=== PATIENT | female | born 1945 | race Caucasian/White ===

== ENCOUNTER → 2023-11-15 09:32 | Outpatient (REF) | payer MEDICARE, OTHER, SELFPAY ==
[2023-11-15 11:23] LABS: Urine Albumin Trace (Neg - Trace); Urine Bilirubin Negative (Negative); Urine Character Very Cloudy (Clear); Urine Color Yellow; Urine Glucose Negative (Negative); Urine Ketone Negative (Negative); Urine Leukocyte 2+ (Negative); Urine Nitrite Negative (Negative); Urine Occult Blood 1+ (Negative); Urine Urobilinogen Negative (Neg - 1+)
[2023-11-15 12:03] LABS: Urine Mucus Moderate
[2023-11-15 12:05] LABS: Urine Bacteria Few (Negative); Urine Red Blood Cell 0-2 /HPF (0-2); Urine Squamous Cell 0-2 /LPF (Few); Urine White Cell 90-100 /HPF (0-5); Urine Yeast Many (Negative)
== END ==
LOC: OLABWHC 09:32
PROVIDERS: ATTENDING PHYSICIAN Nurse Practitioner Family
DX: N39.0 Urinary tract infection, site not specified (principal); Z87.440 Personal history of urinary (tract) infections; Z86.39 Personal history of other endocrine, nutritional and metabolic disease
CPT/HCPCS: 81003; 81015; 87077; 87086; 87147

== ENCOUNTER 2023-12-06 21:11 | Inpatient (IN) | payer MEDICARE, OTHER, SELFPAY ==
[2023-12-06] VITALS (7 sets, daily range): BP systolic 128–155; BP diastolic 72–92; PULSE 79–85; BMI 26.7; BMI 26.1
[2023-12-06 18:30] LABS: Glucose - Point of Care 167 mg/dl (70-99)
[2023-12-06 18:40] LABS: % Basophils 0.4 % (0-2); % Eosinophils 0.9 % (0-6); % Immature Granulocytes 0.3 % (0-0.5); % Lymphocytes 21.8 % (20.5-51.1); % Monocytes 10.9 % (1.7-9.3); % Neutrophils 65.7 % (42.2-75.2); Absolute Eosinophils 0.1 10^3/uL (0-0.7); Absolute Lymphocytes 1.5 10^3/uL (1.2-3.4); Absolute Monocytes 0.8 10^3/uL (0.1-0.6); Absolute Neutrophils 4.5 10^3/uL (1.4-6.5); Mean Corp Hgb Conc. 34.2 g/dL (33.0-37.0); Mean Corpuscular Hgb 28.8 pg (27.0-31.0); Mean Corpuscular Volume 84.1 fL (81.0-99.0); Mean Platelet Volume 9.5 fL (7.4-10.4); Nucleated Red Blood Cells % 0 %; Platelet Count 209 10^3/uL (130-400); Red Blood Cell Count 4.52 10^6/uL (4.20-5.40); White Blood Cell Count 6.9 10^3/uL (4.8-10.8)
[2023-12-06 19:03] LABS: ALT (SGPT) 20 U/L (0-35); AST (SGOT) 27 U/L (14-36); Albumin 4.5 g/dl (3.5-5.0); Alkaline Phosphatase 52 U/L (38-126); Blood Urea Nitrogen 11 mg/dl (7-17); Calcium 10.1 mg/dl (8.4-10.2); Carbon Dioxide 19 mmol/L (22-30); Chloride 103 mmol/L (98-107); Estimated Creatinine Clearance 60 ml/min; Glucose 177 mg/dl (70-99); Potassium 4.4 mmol/L (3.5-5.1); Sodium 135 mmol/L (135-145); Total Bilirubin 0.7 mg/dl (0.2-1.3); Total Protein 7.6 g/dl (6.3-8.2); eGFR > 60.00
--- NOTE | 2023-12-06 19:04 | ED.GENMED ---
History of Present Illness
General
Chief Complaint: Weakness
Source: patient
Exam Limitations: none
Time Seen by Provider: 12/06/23 18:25
Nursing documentation reviewed up to this point in time: agreed with
Travel History
Have you had any contact with someone who has COVID-19?: No
Do you have any symptoms of coronavirus? Fever > 100 degrees, chills, cough, shortness of breath, sore throat, loss of taste or smell, muscle aches, or headache?: No
History of Present Illness
History of Present Illness:
Patient is a 77-year-old female who presents by ambulance for generalized weakness and lightheadedness. Patient reports she generally gets around with a walker but is unable to get up due to generalized weakness. Paramedics reports she has
recently been started on antibiotics for urinary tract infection. Patient denies headache, vision changes, numbness, nausea, vomiting and diarrhea. She reports she has been eating well. Patient denies chest pain or shortness of breath
Past History
Past History
ED Past Medical History: HTN, NIDDM, Psychiatric (Anxiety, Depression) and Other (Dizzy, UTi, )
ED Past Surgical History: Cholecystectomy, (X 3), Orthopedic (Left knee surgery), Tonsilectomy and Other (Parathyroid)
Social History
Tobacco: Former smoker
Alcohol: None
Drug: None
Personal:
Living: correction
Employment: Other
Family History
Family History: Other
Review of Systems
Review of Systems
Allergies reviewed?: Yes
All Other Systems: ROS reviewed and negative except as documented in HPI and ROS
Constitutional: Reports fatigue
EENT: Reports no symptoms
Respiratory: Reports no symptoms
Cardiac: Reports other (Lightheadedness)
ABD/GI: Reports no symptoms
: Reports no symptoms
Musculoskeletal: Reports no symptoms
Skin: Reports no symptoms
Neurological: Reports no symptoms
Endocrine: Reports no symptoms
Hematologic/Lymphatic: Reports no symptoms
Psychiatric: Reports no symptoms
Phy Exam
Physical Exam
Physical Exam:
Physical Exam
General: no apparent distress, not acutely ill
Neck: supple. no meningeal signs. normal psoterior pharynx
Heart: s1/s2 regular rate and rhythm,
Lungs: no acute respiratory distress. clear bilaterally
Abdomen: normal bowel sounds. not tender. no CVAT
Neuro: alert and orientedx3. no focal neurological deficits, when I got patient up to walk, she had great difficulty standing up out of the bed needed 2 people to help her walk around to the bathroom.
Skin: no rash
Psychiatric: well kept. interactive and cooperative
Extremities: no edema. no calf tenderness. negative homans. good distal pulses
Course
Orders/Labs/Results
Orders:
Orders
12/06/23 18:33
Electrocardiogram (*1) Urgent
Reason for Study: Fatigue / Weakness
EKG- Treatment ONCE
12/06/23 18:35
Complete Blood Count/With Diff Urgent
Comprehensive Metabolic Panel Urgent
12/06/23 19:09
Orthostatic VS- Treatment ONCE
12/06/23 19:45
Urinalysis Reflex To Culture Urgent
Date Specimen was Collected: 12/06/23
Time Specimen was Collected: 18:33
Urine Microscopic Reflex Cult Urgent
Urine Culture Urgent
NGUYEN Source: U
Specimen Description:
Date Specimen was Collected: 12/06/23
Time Specimen was Collected: 18:33
12/06/23 19:46
Troponin I Urgent
12/06/23 20:07
0.9% Sodium Chloride 500 ml [Nss] 500 ml IV BOLUS
12/06/23 20:12
CefTRIAXone [Rocephin] 1,000 mg IV NOW STA
12/06/23 20:46
Admit/Transfer Patient As Directed
Co-Sign Provider:
Level of Care: Inpatient admission
Assign to:: Medical/Surgical
Physician / Group: Hospitalist
Diagnosis: Urinry infection
Reason for Hospitalization: Urinary infection
Expected length of stay greater than two midnights?: Yes
ELOS- Estimated Length of Stay in days: 3
I certify the patient meets the requirements for IP care: Yes
12/06/23 20:48
Code Status As Directed
Resuscitation Status: Full Code
12/06/23 22:22
Acetaminophen [Tylenol] 650 mg PO Q4HPRN PRN
Atorvastatin [Lipitor] 80 mg PO HS
Bisacodyl [Dulcolax] 10 mg RECTAL [id number] PRN
Docusate W/Senna [Senokot-S] 1 tablet PO BIDPRN PRN
Fluoxetine HCl [Prozac] 10 mg PO HS
Losartan [Cozaar] 50 mg PO HS
Ondansetron Injectable [Zofran] 4 mg IV Q6HPRN PRN
Pantoprazole [Protonix] 40 mg PO HS
Polyethylene Glycol Powder [Miralax] 17 grams PO DAILYPRN PRN
Risperidone [Risperdal] 1 mg PO HS
Sennosides [Senokot] 17.2 mg PO HS
12/06/23 22:22
Activity As Directed
Activity Level: With Assistance
Pneumatic Compression Sleeves As Directed
Type: Knee high
Vital Signs As Directed
Frequency: Per unit guidelines
DX Deep Vein Thrombosis Video Routine
12/07/23 Breakfast
Regular
Basic Metabolic Panel IN AM
Complete Blood Count/No Diff IN AM
12/07/23 08:00
Docusate Sodium [Colace] 100 mg PO BID
Empagliflozin [Jardiance] 10 mg PO DAILY
METFORMIN HCl [Glucophage] 1,000 mg PO BID@0800,1700
12/07/23 20:00
CefTRIAXone [Rocephin] 1,000 mg IV Q24H
Abnormal Lab Results
12/06/23 12/06/23 12/06/23
18:28 18:35 19:45
RDW 15.0 H %
(11.5-14.5)
Absolute Monos (auto) 0.8 H 10^3/uL
(0.1-0.6)
Monocytes % 10.9 H %
(1.7-9.3)
Carbon Dioxide 19 L mmol/L
(22-30)
Creatinine 0.5 L mg/dL
(0.6-1.0)
Glucose 177 H mg/dl
(70-99)
Ur Occult Blood Reflex 1+ A
(Negative)
Leukocyte Esterase Rfl 2+ A
(Negative)
Urine RBC 7-10 A /HPF
(0-2)
Urine WBC (Reflex) >100 A /HPF
(0-5)
Urine Bacteria (Reflex) Many A
(Negative)
POC Glucose 167 H mg/dl
(70-99)
12/06/23 18:35
12/06/23 18:35
Vital Signs
Initial and Last Documented VS:
Initial Vital Signs
Temp Pulse Resp Pulse Ox
98.6 F 90 16 95
12/06/23 18:26 12/06/23 18:26 12/06/23 18:26 12/06/23 18:26
Last Documented Vital Signs
Temp Pulse Resp BP Pulse Ox
98.0 F 77 20 155/80 96
12/06/23 23:07 12/06/23 23:07 12/06/23 23:07 12/06/23 23:07 12/06/23 23:07
MDM/Problems Addressed
Differential Diagnosis Includes:
Acute dehydration, UTI, pneumonia, hyponatremia
MDM/Problems Addressed:
Patient presents with acute generalized weakness and lightheadedness
Acute Exacerbation and/or Progression of Chronic Illness:
Patient is acutely hypertensive but there is no sign of heart failure or neurological deficit
*EKG
Interpreted by ED Provider?: Yes
Interpretation: abnormal
Comparison EKG: no changes
Rate: normal
Rhythm: sinus
[place]: left axis deviation
Interval: normal interval
QRS Pattern: left vent hypertrophy
Ischemia: no ischemia
*Trading Assistant Interpretation
Rate: normal
Interpretation: normal
*Critical Care Note
Total Time (30-74mins, 75-104mins- exclusive of procedures): Not Applicable
Patient Management
Social determinants of health affecting care: Living situation
Discussion with other providers: Hospitalist
ED Attending Note
-
Portions of this chart may have been created with voice recognition software.� Occasional wrong word or��sound alike� substitutions may have occurred due to the inherent limitations of voice recognition software.
Discharge Plan
Departure
Patient Disposition: Admit
Date of Disposition: 12/06/23
Time of Disposition: 20:12
Admit to: Med/Surg
Presentation/result/management discussed w/ accepting MD/DO: Hospitalist
Patient with high blood pressure during this ER visit?: Yes
Condition: Good
Covid-19: Not Applicable
Discharge Problem:
UTI (urinary tract infection), Ambulatory dysfunction, Generalized weakness
Interventions
Interventions:
*Risk Screen - Suicide Last Done: 12/06/23 18:26
*General Assessment Last Done: 12/06/23 18:26
*Neglect/Abuse Screening Last Done: 12/06/23 18:26
ED- Fall Risk Assessment Last Done: 12/06/23 18:30
*ED COVID-19 Vaccine History Last Done: 12/06/23 18:26
*Nursing Disposition Last Done: 12/06/23 22:15
ED- Cardiac Assessment Last Done: 12/06/23 18:30
ED- Neurological Assessment Last Done: 12/06/23 18:30
ED- Pulmonary Assessment Last Done: 12/06/23 18:30
Discharge Date and Time
Discharge Date/Time: 12/06/23 22:15
[2023-12-06 19:55] LABS: Urine Albumin Trace (Neg - Trace); Urine Bilirubin Negative (Negative); Urine Character Clear (Clear); Urine Color Yellow; Urine Glucose Negative (Negative); Urine Ketone Negative (Negative); Urine Leukocyte 2+ (Negative); Urine Nitrite Negative (Negative); Urine Occult Blood 1+ (Negative); Urine Urobilinogen Negative (Neg - 1+)
[2023-12-06 20:02] LABS: Urine Bacteria Many (Negative); Urine Squamous Cell 0-2 /LPF (Few); Urine White Cell >100 /HPF (0-5)
[2023-12-06 20:16] LABS: Troponin I < 0.012 ng/ml
--- NOTE | 2023-12-06 20:18 | PHANOTE ---
Med Rec Note:
Tried to interview pt about medications, pt didn't know her medications, states 'they take care of them for her'. No paperwork found for pt. Tried to call [facility] twice at [phone], no answer, calls went to voicemail.
Home med list compiled from dr mena and left unconfirmed due to only one source.
--- NOTE | 2023-12-06 20:39 | HPS.HSE ---
Family Physician
-
Family Physician: Hui Torres
Chief Complaint
-
Dizziness
History of Present Illness
77-year-old woman with generalized weakness and lightheadedness. She states that she usually gets around with a walker but is now unable to get up due to generalized weakness. Paramedics who brought her in reports she has recently been started on
antibiotics for urinary tract infection. Patient denies headache, vision changes, numbness, nausea, vomiting and diarrhea and reports she has been eating well. She denies chest pain or shortness of breath. At the time of my interview, lying in
bed, she said she felt well.
Medical History
Past Medical History
Past Medical History: Reports Other
Additional Past Medical History:
essential HTN,
NIDDM,
Anxiety,
Depression
past UTis
s/p Cholecystectomy,
(X 3),
Left knee surgery
Tonsilectomy
Parathyroid surgery
Past Surgical History: Reports Other
Additional Past Surgical History:
See above
Social History
Tobacco: Non-smoker
Alcohol: None
Drug: None
Living: Assisted Living
Family History
Family History: Not pertinent
Allergies / Home Medications
Allergies reflects when Allergies were last updated in [facility].
Home Medications with original date entered in [facility]
Allergy/Medication List:
Allergies
Allergy/AdvReac Type Severity Reaction Status Date / Time
latex Allergy Unknown Verified 12/06/23 18:29
levofloxacin [From Levaquin] Allergy Unknown Verified 12/06/23 18:29
Penicillins Allergy Unknown Verified 12/06/23 18:29
salmon oil Allergy Unknown Verified 12/06/23 18:29
shrimp Allergy Unknown Verified 12/06/23 18:29
sulfamethoxazole Allergy Unknown Verified 12/06/23 18:29
[From Bactrim]
ticlopidine [From Ticlid] Allergy Unknown Verified 12/06/23 18:29
trimethoprim [From Bactrim] Allergy Unknown Verified 12/06/23 18:29
all antibiotics Allergy Unknown Uncoded 12/06/23 18:29
Home Medications
risperidone 1 mg tablet 1 mg PO HS Mental Health/Anxiety 08/08/20
empagliflozin 10 mg tablet (Jardiance) 10 mg PO DAILY #30 tabs 09/21/22
metformin 1,000 mg tablet 1,000 mg PO BID@0800,1700 #60 tabs 09/21/22
atorvastatin 80 mg tablet 80 mg PO HS High Cholesterol 08/09/23
fluoxetine 10 mg tablet 10 mg PO HS mental health 08/09/23
pantoprazole 40 mg tablet,delayed release 40 mg PO HS Gastrointestinal Issue 08/09/23
docusate sodium 100 mg capsule 100 mg PO BID #60 caps 08/15/23
losartan 50 mg tablet 50 mg PO HS #30 tabs 08/15/23
sennosides 8.6 mg tablet (Senna Lax) 17.2 mg (2 x 8.6 mg) PO HS #60 tabs 08/15/23
Review of Systems
-
History Source: Patient
A 12 point ROS was completed and negative except as noted: Yes
Physical Exam
Vital Signs
Vital Signs
Temp Pulse Resp BP Pulse Ox
98.6 F 79 14 129/72 93
12/06/23 18:26 12/06/23 20:00 12/06/23 20:00 12/06/23 20:00 12/06/23 20:00
Physical Exam
General: Well Developed, Well Nourished, No Apparent Distress and Comfortable
HEENT: NormoCephalic, No Ptosis, Nose Appears Normal and Ears Appear Normal
Respiratory: Clear
Cardiac: S1/S2 and Regular Rhythm
GI: Soft and Non Tender
Musculoskeletal: No Clubbing, No Cyanosis and No Edema
Skin: Warm and Dry; No Rash or Jaundice
Neuro: Awake and Alert
Psych: Calm
Laboratory Results
-
12/06/23 18:35
12/06/23 18:35
Laboratory Results
Total Bilirubin 0.7 mg/dl (0.2-1.3) 12/06/23 18:35
AST 27 U/L (14-36) 12/06/23 18:35
ALT 20 U/L (0-35) 12/06/23 18:35
Alkaline Phosphatase 52 U/L (38-126) 12/06/23 18:35
Troponin I < 0.012 ng/ml 12/06/23 19:46
Data Reviewed
-
Lab Data: Labs Reviewed by me
Impression/Plan
-
IMPRESSION:
77 woman with UTI (r/o pyelo). Vitals stable
PLAN:
1. Infection, urinary source, with systemic symptoms.
IV rocephin
await UC results
2. Otherwise continue current meds
Full code
VCD for DVTp
[2023-12-06] MEDS: ROCEPHIN 1000 MG IV (20:50)
[2023-12-06] MEDS: NSS 500 IV (20:51)
[2023-12-06 23:09] LABS: Glucose - Point of Care 126 mg/dl (70-99)
[2023-12-06] MEDS: COZAAR 50 MG PO (23:15)
[2023-12-06] MEDS: TYLENOL 650 MG PO (23:16)
[2023-12-06] MEDS: SENOKOT 17.1999999999999993 MG PO (23:17)
[2023-12-06] MEDS: RISPERDAL 1 MG PO (23:19)
[2023-12-06] MEDS: PROTONIX 40 MG PO (23:19)
[2023-12-06] MEDS: PROZAC 10 MG PO (23:19)
[2023-12-06] MEDS: LIPITOR 80 MG PO (23:19)
--- NOTE | 2023-12-07 05:29 | PTCARENOTE ---
Pt admitted to unit from ED. Pt ambulated to bed with nursing staff and rolling walker. AAXO3. Pt reported headache. Medication administered. Pt forgetful at times. Bed alarm in place. Pt reports 'a little burning when I pee.' Pt reports 'a little
lightheaded and dizzy' when ambulating. Bedside commode in place. Pt oriented to room with call dickerson in reach. Plan of care ongoing.
[2023-12-07 07:11] LABS: Hematocrit 35.6 % (37.0-47.0); Mean Corp Hgb Conc. 33.7 g/dL (33.0-37.0); Mean Corpuscular Hgb 28.4 pg (27.0-31.0); Mean Corpuscular Volume 84.4 fL (81.0-99.0); Mean Platelet Volume 9.9 fL (7.4-10.4); Platelet Count 193 10^3/uL (130-400); Red Blood Cell Count 4.22 10^6/uL (4.20-5.40); Red Cell Dist. Width 15.1 % (11.5-14.5); White Blood Cell Count 5.6 10^3/uL (4.8-10.8)
[2023-12-07 07:30] VITALS: BP 123/75
[2023-12-07 07:40] LABS: Blood Urea Nitrogen 12 mg/dl (7-17); Calcium 9.3 mg/dl (8.4-10.2); Carbon Dioxide 28 mmol/L (22-30); Chloride 104 mmol/L (98-107); Estimated Creatinine Clearance 59 ml/min; Glucose 129 mg/dl (70-99); Potassium 3.5 mmol/L (3.5-5.1); Sodium 137 mmol/L (135-145); eGFR > 60.00
[2023-12-07 08:19] LABS: Glucose - Point of Care 121 mg/dl (70-99)
[2023-12-07] MEDS: JARDIANCE 10 MG PO (08:21)
[2023-12-07] MEDS: COLACE 100 MG PO ×2 (08:21→21:23)
[2023-12-07] MEDS: GLUCOPHAGE 1000 MG PO ×2 (08:21→17:30)
[2023-12-07 12:02] LABS: Glucose - Point of Care 144 mg/dl (70-99)
--- NOTE | 2023-12-07 13:07 | W.PN.HOSP.TC ---
Today's Communication/Plan
-
Patient needs to straight cath
Bladder scan to see if patient has PVR
Await urine culture
Need to get medicines list verified
PT OT
Assessment / Plan
Assessment / Plan
77-year-old female with generalized weakness and lightheadedness. Patient has been recently started on antibiotics for UTI. She did not fall on examination awake and alert. she was on intermittent catheterization with a Dr. Alejandro in [place], and he
was following her for urinary retention of unknown etiology, but she got tired of doing intermittent catheterization and stopped it completely. She has had several urinary tract infections ever since.
Asking to go home
Cardiovascular system S1-S2 appreciated
Chest clear to auscultation
Abdomen soft and nontender
No pedal edema
# Generalized weakness and dizziness
Check orthostatic vital signs
Patient does have a history of benign positional vertigo
PT OT
Treat UTI
# UTI
Due to noncompliance with straight cath at home
History of recurrent UTI
Await cultures
Bladder scan and straight cath
# Diabetes-need to get medications list
Patient was on Jardiance and metformin
With recurrent UTI will stop Jardiance
# Hypertension-losartan, amlodipine
# History of asthma-Stable
# History of CVA-Add ASA to statin
# Cognitive dysfunction
# Hyperlipidemia-STatin
# Anxiety and depression-last medications list had fluoxetine and risperidone- verification
# Ambulatory dysfunction-PT OT
# GERD-PPI
#DVT Prophylaxis-Lovenox
#Full CODE
Called daughter went to message
Anticipated Discharge: 24 - 48 hours
Subjective/Interval History
-
Date of Service: December 07, 2023
Objective Data
-
Labs:
Laboratory Results
12/07/23
06:37
WBC 5.6
Hgb 12.0
Hct 35.6 L
Plt Count 193
Sodium 137
Potassium 3.5
Chloride 104
Carbon Dioxide 28
BUN 12
Creatinine 0.6
Glucose 129 H
Calcium 9.3
Vital Signs:
Vital Signs
Temp Pulse Resp BP Pulse Ox
98.4 F 97 16 123/75 97
12/07/23 07:30 12/07/23 07:30 12/07/23 07:30 12/07/23 07:30 12/07/23 07:30
I&O
12/06/23 12/07/23 12/08/23
06:59 06:59 06:59
Intake Total 960 / 960
Balance 960 / 960
[2023-12-07 14:55] VITALS: BP 120/70; PULSE 97; O2SAT 95
--- NOTE | 2023-12-07 15:29 | CM ---
Patient seen bedside.
IA completed.
PAtient lives alone in an apartment at [facility], independent living.
Patient ambulates with at .
Patient stated she had VN in the past but not sure with who.
No skilled rehab.
PCP: Dr Torres
Pharmacy: [facility]
PT/OT recommending skilled rehab.
Referral to [facility] via [facility].
Patient not sure if she has a ride home when ready for d/c.
[2023-12-07 16:00] VITALS: BP 126/73
[2023-12-07] MEDS: LOVENOX 40 MG SC (17:30)
--- NOTE | 2023-12-07 17:36 | PTCARENOTE ---
unable to teach the patient to perform self catheterization. patient is confused
[2023-12-07 17:38] LABS: Glucose - Point of Care 120 mg/dl (70-99)
[2023-12-07] MEDS: ROCEPHIN 1000 MG IV (21:23)
[2023-12-07] MEDS: RISPERDAL 1 MG PO (21:23)
[2023-12-07] MEDS: LIPITOR 80 MG PO (21:23)
[2023-12-07] MEDS: COZAAR 50 MG PO (21:23)
[2023-12-07] MEDS: STERILE WATER FOR INJECTION 10 ML IV (21:23)
[2023-12-07] MEDS: PROTONIX 40 MG PO (21:23)
[2023-12-07] MEDS: SENOKOT 17.1999999999999993 MG PO (21:23)
[2023-12-07] MEDS: PROZAC 10 MG PO (21:23)
[2023-12-07 22:16] LABS: Glucose - Point of Care 340 mg/dl (70-99)
[2023-12-07 23:46] VITALS: BP 174/94
[2023-12-08 06:44] LABS: COVID-19 Antigen Negative (Negative)
[2023-12-08 07:00] VITALS: BP 128/73
[2023-12-08] MEDS: COLACE 100 MG PO ×2 (07:35→20:16)
[2023-12-08] MEDS: LOW STRENGTH ASPIRIN 81 MG PO (07:35)
[2023-12-08] MEDS: GLUCOPHAGE 1000 MG PO ×2 (07:35→16:51)
[2023-12-08 09:07] VITALS: BP 114/58; BP 128/73; PULSE 78; PULSE 85
[2023-12-08 09:57] LABS: Glucose - Point of Care 186 mg/dl (70-99)
--- NOTE | 2023-12-08 10:10 | PTCARENOTE ---
This nurse received pt. from [id number] d/t pt. positive for MRSA in the nares, needing private room. No change from previous assessment consultant. Pt. VSS, no c/o pain, resting comfortably in bed, call dickerson within reach.
[2023-12-08 11:47] LABS: Glucose - Point of Care 130 mg/dl (70-99)
--- NOTE | 2023-12-08 14:07 | W.PN.HOSP.TC ---
Today's Communication/Plan
-
Await final CX to stop AB
Add Diflucan
Need to get accurate med list
Pt to straight cath
Assessment / Plan
Assessment / Plan
77-year-old female with generalized weakness and lightheadedness. Patient has been recently started on antibiotics for UTI. She did not fall on examination awake and alert. she was on intermittent catheterization with a Dr. Alejandro in [place], and he
was following her for urinary retention of unknown etiology, but she got tired of doing intermittent catheterization and stopped it completely. She has had several urinary tract infections ever since.
Cardiovascular system S1-S2 appreciated
Chest clear to auscultation
Abdomen soft and nontender
No pedal edema
# Generalized weakness and dizziness
Check orthostatic vital signs
Patient does have a history of benign positional vertigo
PT OT
Treat UTI
# UTI
Due to noncompliance with straight cath at home
History of recurrent UTI
Patient needs to be educated how to straight cath
Angle in the urine-start Diflucan
# Diabetes-need to get medications list
Patient was on Jardiance and metformin
With recurrent UTI will stop Jardiance
#MRSA Screen positive
# Hypertension-losartan, amlodipine
# History of asthma-Stable
# History of CVA- ASA and statin
# Cognitive dysfunction
# Hyperlipidemia-Statin
# Anxiety and depression-last medications list had fluoxetine and risperidone- verification
# Ambulatory dysfunction-PT OT
# GERD-PPI
#DVT Prophylaxis-Lovenox
#Full CODE
Called daughter went to message again today- Left message
D/W RN
Anticipated Discharge: 24 - 48 hours
Subjective/Interval History
-
Date of Service: December 08, 2023
Objective Data
-
Vital Signs:
Vital Signs
Temp Pulse Resp BP Pulse Ox
97.7 F 78 16 128/73 93
12/08/23 07:00 12/08/23 07:00 12/08/23 07:00 12/08/23 07:00 12/08/23 07:00
I&O
12/07/23 12/08/23 12/09/23
06:59 06:59 06:59
Intake Total 960 / 960 840 / 840
Output Total 1600 / 1600
Balance 960 / 960 -760 / -760
--- NOTE | 2023-12-08 14:45 | PTCARENOTE ---
Dr. Woods made aware this nurse unable to teach pt. to straight cath herself as pt. is unable to preform task.
[2023-12-08 15:32] VITALS: BP 118/72
[2023-12-08] MEDS: DIFLUCAN 200 MG PO (16:47)
[2023-12-08] MEDS: LOVENOX 40 MG SC (16:51)
[2023-12-08] MEDS: ROCEPHIN 1000 MG IV (20:17)
[2023-12-08] MEDS: FLUSH (NSS) 2 FLUSH IV (20:17)
[2023-12-08] MEDS: STERILE WATER FOR INJECTION 10 ML IV (20:17)
[2023-12-08] MEDS: SENOKOT 17.1999999999999993 MG PO (21:52)
[2023-12-08] MEDS: PROTONIX 40 MG PO (21:53)
[2023-12-08] MEDS: LIPITOR 80 MG PO (21:53)
[2023-12-08] MEDS: RISPERDAL 1 MG PO (21:53)
[2023-12-08] MEDS: PROZAC 10 MG PO (21:53)
[2023-12-08] MEDS: COZAAR 50 MG PO (21:53)
[2023-12-08 23:05] VITALS: BP 143/77
[2023-12-08 23:20] LABS: Glucose - Point of Care 110 mg/dl (70-99)
[2023-12-09 07:21] LABS: Hematocrit 38.6 % (37.0-47.0); Hemoglobin 12.7 g/dL (12.0-16.0); Mean Corp Hgb Conc. 32.9 g/dL (33.0-37.0); Mean Corpuscular Hgb 28.7 pg (27.0-31.0); Mean Corpuscular Volume 87.1 fL (81.0-99.0); Mean Platelet Volume 9.6 fL (7.4-10.4); Platelet Count 189 10^3/uL (130-400); Red Blood Cell Count 4.43 10^6/uL (4.20-5.40); Red Cell Dist. Width 15.3 % (11.5-14.5); White Blood Cell Count 5.7 10^3/uL (4.8-10.8)
[2023-12-09] MEDS: DIFLUCAN 200 MG PO (08:01)
[2023-12-09] MEDS: LOW STRENGTH ASPIRIN 81 MG PO (08:01)
[2023-12-09] MEDS: GLUCOPHAGE 1000 MG PO ×2 (08:01→16:32)
[2023-12-09] MEDS: COLACE 100 MG PO (08:02)
[2023-12-09 08:14] LABS: Glucose - Point of Care 153 mg/dl (70-99)
[2023-12-09 09:00] VITALS: BP 146/76
[2023-12-09 09:04] LABS: Blood Urea Nitrogen 15 mg/dl (7-17); Carbon Dioxide 27 mmol/L (22-30); Chloride 105 mmol/L (98-107); Estimated Creatinine Clearance 59 ml/min; Glucose 111 mg/dl (70-99); Potassium 3.4 mmol/L (3.5-5.1); Sodium 137 mmol/L (135-145); eGFR > 60.00
[2023-12-09] MEDS: KCL 40 MEQ PO (11:42)
--- NOTE | 2023-12-09 14:02 | W.PN.HOSP.TC ---
Today's Communication/Plan
-
Diflucan
Discharge planning
May need Jonas placed prior to discharge if [facility] cannot help with straight cath
Patient cannot do straight cath herself
Assessment / Plan
Assessment / Plan
77-year-old female with generalized weakness and lightheadedness. Patient has been recently started on antibiotics for UTI. She did not fall on examination awake and alert. she was on intermittent catheterization with a Dr. Alejandro in [place], and he
was following her for urinary retention of unknown etiology, but she got tired of doing intermittent catheterization and stopped it completely. She has had several urinary tract infections ever since.
Cardiovascular system S1-S2 appreciated
Chest clear to auscultation
Abdomen soft and nontender
No pedal edema
# Generalized weakness and dizziness
Check orthostatic vital signs - No standing one recorded.
Patient does have a history of benign positional vertigo
PT OT
Treat UTI
# UTI
Due to noncompliance with straight cath at home
History of recurrent UTI
Patient needs to be educated how to straight cath
Angle in the urine-start Diflucan
# Diabetes-need to get medications list
Patient was on Jardiance and metformin
With recurrent UTI will stop Jardiance, do not resume
# MRSA Screen positive- daughter aware
# Hypokalemia- Replace
# Hypertension-Losartan, Amlodipine
# History of asthma-Stable
# History of CVA - ASA and Statin
# Cognitive dysfunction
# Hyperlipidemia-Statin
# Anxiety and depression-last medications list had fluoxetine and Risperidone- verification
# Ambulatory dysfunction-PT OT
# GERD-PPI
# DVT Prophylaxis-Lovenox
# CODE STATUS addressed with the daughter today. Patient remains a full code now. Discussed about considering DNR. Daughter will talk to patient about it.
D/W RN
Spoke to daughter . Pt lives in independent living at [facility]. Daughter thinks she needs to go to assisted living.
Daughter stated that Jardiance was stopped. We had also not given it to her here. Discussed with daughter to bring an accurate medications list but she will.
She is aware about MRSA
Discussed with daughter regarding patient not straight cathing and that is why she is getting recurrent UTIs. Daughter will find out from [facility] if they can assist her with straight caths. She is also trying to move her to an assisted living from
the independent.
If this is not feasible we may need to place a Jonas catheter prior to discharge.
time spent 52 min
Anticipated Discharge: Within 24 hours
Subjective/Interval History
-
Date of Service: December 09, 2023
Objective Data
-
Labs:
Laboratory Results
12/09/23
06:57
WBC 5.7
Hgb 12.7
Hct 38.6
Plt Count 189
Sodium 137
Potassium 3.4 L
Chloride 105
Carbon Dioxide 27
BUN 15
Creatinine 0.6
Glucose 111 H
Calcium 9.0
Vital Signs:
Vital Signs
Temp Pulse Resp BP Pulse Ox
98.2 F 91 18 146/76 93
12/09/23 09:00 12/09/23 09:00 12/09/23 09:00 12/09/23 09:00 12/09/23 09:00
I&O
12/08/23 12/09/23 12/10/23
06:59 06:59 06:59
Intake Total 840 / 840 480 / 480
Output Total 1600 / 1600 350 / 350
Balance -760 / -760 130 / 130
[2023-12-09 15:30] VITALS: BP 100/58; BP 116/64; BP 123/61; BP 124/54; PULSE 82; PULSE 91
[2023-12-09 16:28] LABS: Glucose - Point of Care 112 mg/dl (70-99)
[2023-12-09] MEDS: LOVENOX 40 MG SC (16:55)
[2023-12-09] MEDS: BACTROBAN 2% OINTMENT 1 APPLIC NASAL (20:05)
[2023-12-09] MEDS: STERILE WATER FOR INJECTION 10 ML IV (20:05)
[2023-12-09] MEDS: ROCEPHIN 1000 MG IV (20:05)
[2023-12-09] MEDS: COLACE PO (20:10)
[2023-12-09] MEDS: SENOKOT 17.1999999999999993 MG PO (22:44)
[2023-12-09] MEDS: LIPITOR 80 MG PO (22:44)
[2023-12-09] MEDS: PROZAC 10 MG PO (22:44)
[2023-12-09] MEDS: RISPERDAL 1 MG PO (22:44)
[2023-12-09] MEDS: PROTONIX 40 MG PO (22:44)
[2023-12-09] MEDS: COZAAR 50 MG PO (22:45)
[2023-12-09 23:05] VITALS: BP 121/73
[2023-12-10] MEDS: COLACE 100 MG PO (07:55)
[2023-12-10] MEDS: BACTROBAN 2% OINTMENT 1 APPLIC NASAL ×2 (07:55→20:55)
[2023-12-10] MEDS: DIFLUCAN 200 MG PO (07:56)
[2023-12-10] MEDS: LOW STRENGTH ASPIRIN 81 MG PO (07:56)
[2023-12-10] MEDS: GLUCOPHAGE 1000 MG PO ×2 (07:56→17:21)
[2023-12-10 09:07] LABS: Glucose - Point of Care 93 mg/dl (70-99)
[2023-12-10 10:15] VITALS: BP 121/72; BP 124/67; BP 132/71; PULSE 69; PULSE 78; PULSE 89
--- NOTE | 2023-12-10 11:51 | W.PN.HOSP.TC ---
Today's Communication/Plan
-
see bold
Assessment / Plan
Assessment / Plan
Gen: NAD, Awake and alert
Eyes: EOMI, PERRLA, no scleral icterus.
Neck: supple.
CV: RRR, +S1/S2, no m/r/g.
Resp: CTAB, no rales, wheezes, or rhonchi.
Abd: +BS, soft, NT, ND
Skin: No rashes.
Neuro: CN 2-12 intact, non-focal.
Psych: calm flat affect.
Generalized weakness and dizziness:
-h/o BPPV and chronic ambulatory dysfunction
-PT/OT
Chronic UTI:
-h/o recurrent UTIs
-likely due to noncompliance with straight cath, place muñiz
-was on abx PI/SENIOR RESEARCH ASSOCIATE
-currently on Diflucan for UCx with seth
-c/s ID
Other problems:
DM2: no further Jardiance with recurrent UTIs
Hypokalemia: recheck K today
Essential Hypertension: cont Losartan/Amlodipine
Asthma
h/o CVA: cont ASA/statin
Cognitive dysfunction, chronic
Hyperlipidemia: cont statin
Anxiety
Depression
GERD: cont PPI
FULL/Lovenox
Anticipated Discharge: Within 24 hours
Subjective/Interval History
-
Date of Service: December 10, 2023
Denies CP/SOB.
Objective Data
-
Vital Signs:
Vital Signs
Temp Pulse Resp BP Pulse Ox
98.0 F 69 16 121/73 96
12/10/23 10:15 12/10/23 10:15 12/10/23 10:15 12/09/23 23:05 12/10/23 10:15
I&O
12/09/23 12/10/23 12/11/23
06:59 06:59 06:59
Intake Total 480 / 480 600 / 600 480 / 480
Output Total 350 / 350
Balance 130 / 130 600 / 600 480 / 480
[2023-12-10 13:47] LABS: Potassium 4.1 mmol/L (3.5-5.1)
[2023-12-10 14:18] VITALS: BP 121/70; PULSE 64; O2SAT 97
--- NOTE | 2023-12-10 15:15 | CON.ID ---
Chief Complaint / Past History
History of Present Illness
Laine Scherer is a 77-year-old female being evaluated at the request of Dr. Cedeno in regards to complicated urinary tract infection. History is obtained from chart review, along with patient interview.
The patient has a significant past medical history of HTN and diabetes mellitus and was brought to the emergency room on 12/05 secondary to generalized weakness and feeling lightheaded. According to reviewed history she recently started on
antibiotics in the treatment of a urinary tract infection.
Further history indicates the patient had previously was followed by a physician in [place], [place] and had been advised to perform intermittent straight cathing. Since moving to the area to be closer to her daughter approximately 2 years ago this
has not been performing as much. Review of records indicate that she was admitted to [facility] in late July 2023, and at that time had been evaluated by Urology noted that she had an atonic neurogenic bladder (possibly secondary to
medication) and advised the patient be given supplies for intermittent cathing at the time of discharge.
The patient notes at present that she has slight dysuria, but has not had any hematuria.
Past History
Additional Past Medical History:
HTN
DM
Anxiety/depression
Additional Past Surgical History:
Cholecystectomy
x 3
Left knee surgery
Tonsillectomy
Parathyroid surgery
Allergy History:
latex Allergy (Verified 12/06/23 18:29)
Unknown
levofloxacin [From Levaquin] Allergy (Verified 12/06/23 18:29)
Unknown
Penicillins Allergy (Verified 12/06/23 18:29)
Unknown
salmon oil Allergy (Verified 12/06/23 18:29)
Unknown
shrimp Allergy (Verified 12/06/23 18:29)
Unknown
sulfamethoxazole [From Bactrim] Allergy (Verified 12/06/23 18:29)
Unknown
ticlopidine [From Ticlid] Allergy (Verified 12/06/23 18:29)
Unknown
Medications Reviewed: Yes
Current Antibiotics:
Diflucan 200 mg p.o. every 24 hours
Social History
Tobacco: Former Smoker
Alcohol: None
Drug: None
Personal:
Living: Assisted
Employment: Retired
Family History
Family History: Not Pertinent
Review of Systems
Vital Signs
Temp Pulse Resp BP Pulse Ox
98.0 F 69 16 121/73 96
12/10/23 10:15 12/10/23 10:15 12/10/23 10:15 12/09/23 23:05 12/10/23 10:15
Physical Exam
Physical Exam
Constitutional: No Acute Distress, Comfortable, Chronically Ill and Non-toxic
Eyes: No Conjunctival Hemorrhage and Sclera Anicteric
Oral: No Thrush and No Ulcers
Cardiovascular: Regular Rate and S1/S2; Negative S3/S4
Pulmonary: Clear; Negative Wheezes, Rales or Rhonchi
Gastrointestinal: Soft, Non Tender, Non Distended and Normal Bowel Sounds
Extremities: Negative Edema, Cyanosis or Erythema
Skin: Warm and Dry; Negative Rash or Jaundice
Neurological: Awake and Alert
Psychological: Calm
Lab / Diagnostic Study Results
12/09/23 06:57
12/10/23 13:19
Abs Immat Gran (auto) 0.0 10^3/uL (0-0.05) 12/06/23 18:35
Absolute Neuts (auto) 4.5 10^3/uL (1.4-6.5) 12/06/23 18:35
Absolute Lymphs (auto) 1.5 10^3/uL (1.2-3.4) 12/06/23 18:35
Absolute Monos (auto) 0.8 10^3/uL (0.1-0.6) H 12/06/23 18:35
Absolute Basos (auto) 0.0 10^3/uL (0-0.2) 12/06/23 18:35
Immature Gran % 0.3 % (0-0.5) 12/06/23 18:35
Neutrophils % 65.7 % (42.2-75.2) 12/06/23 18:35
Lymphocytes % 21.8 % (20.5-51.1) 12/06/23 18:35
Monocytes % 10.9 % (1.7-9.3) H 12/06/23 18:35
Eosinophils % 0.9 % (0-6) 12/06/23 18:35
Basophils % 0.4 % (0-2) 12/06/23 18:35
Ur Squamous Epith Cells 0-2 /LPF (Few) 12/06/23 19:45
Microbiology Results
Micro:
12/06/23 19:45 Urine Culture - Final
Urine Yeast
12/06/23 23:50 MRSA Screen - Final
Nose Staph aureus MRSA
Imaging:
08/11/2023 Renal ultrasound: No hydronephrosis. Kidneys are normal in size, contour and echogenicity. No renal calculi noted. Simple bilateral renal cysts seen. See full dictation for additional detail.
Assessment / Plan
Complicated urinary tract infection
Neurogenic bladder
Recurrent urinary tract infections
HTN
DM
Anxiety/depression
Recommendations:
Agree with initiation of Diflucan. Would treat for 7 days total.
Would maintain good fluid intake and attempt frequent urination.
Will need outpatient follow-up with Urology (appears to be scheduled in December in [facility]).
May need further urodynamic studies, or counseling regarding chronic Jonas catheter versus more frequent self-catheterization.
Care Review
Plan reviewed with: Physician (Hospitalist)
[2023-12-10 15:37] VITALS: BP 127/66; PULSE 78; O2SAT 94
[2023-12-10 16:00] VITALS: BP 120/62
--- NOTE | 2023-12-10 16:00 | CM ---
CM reviewed pt with Dr Cedeno- ADC<24 hours
Per notes, dtr noted pt might need PCU on long-term basis
Call with [facility]
PCU cannot straight cath but able to maintain muñiz cath care
Update to Dr Cedeno
SNF remains recommended on dc
[facility] clinically accepted but may not have bed available
VM left for dtr to encourage backup SNF referrals
Awaiting call back
Discharge Disposition- SNF
[2023-12-10 17:21] LABS: Glucose - Point of Care 185 mg/dl (70-99)
[2023-12-10] MEDS: LOVENOX 40 MG SC (17:21)
[2023-12-10] MEDS: SENOKOT 17.1999999999999993 MG PO (21:01)
[2023-12-10] MEDS: PROTONIX 40 MG PO (21:01)
[2023-12-10] MEDS: PROZAC 10 MG PO (21:01)
[2023-12-10] MEDS: STERILE WATER FOR INJECTION IV (21:01)
[2023-12-10] MEDS: COLACE PO (21:01)
[2023-12-10] MEDS: RISPERDAL 1 MG PO (21:01)
[2023-12-10] MEDS: LIPITOR 80 MG PO (21:02)
[2023-12-10] MEDS: COZAAR 50 MG PO (21:02)
[2023-12-10 22:46] VITALS: BP 136/54; BP 136/72; BP 141/76; BP 153/83; PULSE 69; PULSE 74; PULSE 79
[2023-12-11 08:01] LABS: Glucose - Point of Care 104 mg/dl (70-99)
[2023-12-11] MEDS: BACTROBAN 2% OINTMENT 1 APPLIC NASAL (08:16)
[2023-12-11] MEDS: DIFLUCAN 200 MG PO (08:17)
[2023-12-11] MEDS: COLACE 100 MG PO (08:17)
[2023-12-11] MEDS: GLUCOPHAGE 1000 MG PO (08:17)
[2023-12-11] MEDS: LOW STRENGTH ASPIRIN 81 MG PO (08:17)
[2023-12-11 08:37] VITALS: BP 115/63
--- NOTE | 2023-12-11 09:33 | W.PN.HOSP.TC ---
Addendum entered and electronically signed by Octaviano Cedeno MD 12/11/23 11:25:
Total time spent on d/c = 31 min. This included today's physical exam, progress note, review of laboratory and diagnostic data, preparation of discharge documents and prescriptions, and discussions about the pt's hospital course and discharge plan
with the patient and other associate medical director involved in the patient's care.
Original Note:
Today's Communication/Plan
-
see bold
Assessment / Plan
Assessment / Plan
Gen: NAD, Awake and alert
Eyes: EOMI, PERRLA, no scleral icterus.
Neck: supple.
CV: remains RRR, +S1/S2, no m/r/g.
Resp: CTAB anteriorly, no rales, wheezes, or rhonchi.
Abd: remains +BS, soft, NT, ND
Skin: No rashes.
Neuro: CN 2-12 intact, non-focal.
Psych: normal mood and affect.
Generalized weakness and dizziness:
-h/o BPPV and chronic ambulatory dysfunction
-PT/OT
Acute on chronic UTI:
-h/o recurrent UTIs
-likely due to noncompliance with straight cath
-muñiz placed 12/10/23
-was on abx OPTIONS TRADER
-cont Diflucan for UCx with seth to complete 7 days as per ID
Other problems:
DM2: no further Jardiance with recurrent UTIs
Hypokalemia: recheck K today
Essential Hypertension: cont Losartan/Amlodipine
Asthma
h/o CVA: cont ASA/statin
Cognitive dysfunction, chronic
Hyperlipidemia: cont statin
Anxiety
Depression
GERD: cont PPI
FULL/Lovenox
Medically cleared for d/c, case management aware.
Anticipated Discharge: Today
Subjective/Interval History
-
Date of Service: December 11, 2023
No new complaints.
Objective Data
-
Vital Signs:
Vital Signs
Temp Pulse Resp BP Pulse Ox
97.4 F 66 18 115/63 95
12/11/23 08:37 12/11/23 08:37 12/11/23 08:37 12/11/23 08:37 12/11/23 08:37
I&O
12/10/23 12/11/23 12/12/23
06:59 06:59 06:59
Intake Total 600 / 600 1140 / 1140
Output Total 1225 / 1225
Balance 600 / 600 -85 / -85
--- NOTE | 2023-12-11 09:55 | CM ---
Spoke with daughter Anne.
Daughter would like patient to go to [facility] skilled rehab.
Patient has been living at [facility] and knows everyone there and daughter not sure patient will do well at another facility.
Left VM for [facility] at [facility] to discuss bed availability.
Patient with Jonas cath.
PT continues to recommend skilled rehab.
Plan: skilled rehab when stable.
[2023-12-11 10:47] VITALS: BP 116/72; BP 139/72; BP 144/74; PULSE 67; PULSE 71; PULSE 76
--- NOTE | 2023-12-11 12:16 | CM ---
Addendum entered by Heidi Xiao 12/11/23 13:51:
Facility aware patient with MRSA in nares.
Original Note:
Patient for d/c to [facility] today via WC van.
Daughter Anne updated and agreeable to paying for WC van.
WC van arranged for 3:30 pm.
Anne will call [phone], cost will be $85
IMM reviewed with daughter and will email copy to [email or web address]
[facility]
Report# [phone]
[2023-12-11 12:33] LABS: Glucose - Point of Care 70 mg/dl (70-99)
--- NOTE | 2023-12-11 14:06 | W.DCSUMMARY ---
Discharge Summary
Discharge Data
Date of Admission: 12/06/23
Date of Discharge: 12/11/23
-
Pending Results: No
Hospital Course
Primary diagnoses:
Acute on chronic urinary tract infection
Acute on chronic urinary retention
Generalized weakness and dizziness
Secondary diagnoses:
Type 2 diabetes mellitus
Hypokalemia
Essential Hypertension
Asthma
h/o cerebrovascular accident
Cognitive dysfunction, chronic
Hyperlipidemia
Anxiety
Depression
Gastroesophageal reflux disease
Consultants:
Infectious disease
Imaging:
None
Hospital course: 77-year-old female who presented with chief complaint of dizziness as outlined in H&P done on admission. Patient also had generalized weakness and was seen in consultation by physical therapy and Occupational Therapy. Patient had
been placed on antibiotics for urinary tract infection. Urinalysis on admission showed pyuria. Patient did not have any leukocytosis and was afebrile throughout hospitalization. Patient was initially placed on empiric Rocephin. Urine culture
grew yeast. The patient was started on Diflucan. She was seen in consultation by infectious disease and 7 days total of Diflucan was recommended. Patient had a Jonas placed for urinary retention. Note, prior to admission she was refusing to
straight catheterize herself. The patient was discharged in medically stable condition.
Discharge Plan
-
Patient Disposition: Usp/SNF
Discharge Diagnosis/Procedures: Generalized weakness and dizziness, acute on chronic urinary tract infection, urinary retention
Condition: Good
Diet: Diabetic, Carb Controlled
Activity: With assistance
Driving Restrictions: No driving
Blood Work: BMP and CBC in 1 week, prescription from PCP
Specialty Instructions: Weigh Daily- Call MD for wt gain/loss 3 lbs overnight/5 lbs in 1 week
Activity Restrictions/Additional Instructions:
Hibiclens soap
Referrals:
Hui Torres, DO [Family Provider] - in less than 1 week
Prescriptions:
New
fluconazole 200 mg Tablet
200 mg PO DAILY Qty: 0 0RF
Rx Instructions:
through 12/14/23
losartan 50 mg Tablet
50 mg PO HS Qty: 0 0RF
aspirin [Children's Aspirin] 81 mg Tablet,Chewable
81 mg PO DAILY Qty: 0 0RF
Continued
risperidone 1 MG tablet
1 mg PO HS
metformin 1,000 mg Tablet
1,000 mg PO BID@0800,1700 Qty: 60 0RF
atorvastatin 80 mg tablet
80 mg PO HS
fluoxetine 10 mg tablet
10 mg PO HS
pantoprazole 40 mg tablet,delayed release (DR/EC)
40 mg PO HS
sennosides [Senokot] 8.6 mg Tablet
17.2 mg PO HS PRN (Reason: constipation)
potassium chloride 10 mEq Tablet Extended Release
10 meq PO BID
cefdinir 300 mg Capsule
300 mg PO Q12H
docusate sodium 100 mg Tablet
100 mg PO DAILY PRN (Reason: constipation)
Discontinued
Jardiance 10 mg Tablet
10 mg PO DAILY Qty: 30 0RF
Hold Instructions: Resume on 08/22/23. Resume only after discussing with your primary care provider.
losartan 100 mg Tablet
100 mg PO HS
Discharge Orders:
Discharge Patient (As Directed); Ordered 12/11/23
Ordered By: Octaviano Cedeno
Discharge Date and Time
Print Language: UZBEK
[2023-12-11 14:58] VITALS: BP 130/63
== END 2023-12-11 16:01 | DRG 690 ==
LOC: 4 WEST ACU 21:11
PROVIDERS: Hospitalist; ADMITTING PHYSICIAN Internal Medicine; ATTENDING PHYSICIAN Internal Medicine; CONSULT PHYSICIAN Internal Medicine Infectious Disease; EMERGENCY PHYSICIAN Emergency Medicine; FAMILY PHYSICIAN Family Medicine
DX: N39.0 Urinary tract infection, site not specified (principal); N31.9 Neuromuscular dysfunction of bladder, unspecified; R33.9 Retention of urine, unspecified; E11.9 Type 2 diabetes mellitus without complications; E87.6 Hypokalemia; I10 Essential (primary) hypertension; J45.909 Unspecified asthma, uncomplicated; E78.5 Hyperlipidemia, unspecified; F41.9 Anxiety disorder, unspecified; F32.A Depression, unspecified; K21.9 Gastro-esophageal reflux disease without esophagitis; Z79.84 Long term (current) use of oral hypoglycemic drugs; Z86.73 Personal history of transient ischemic attack (TIA), and cerebral infarction without residual deficits; Z87.891 Personal history of nicotine dependence
CPT/HCPCS: 80048; 80053; 81003; 81015; 82962; 84132; 84484; 85025; 85027; 87070; 87086; 87147; 87811; 93005; 97110; 97116; 97162; 97166; 97535; 99285

== ENCOUNTER → 2023-12-14 10:45 | Outpatient (REF) | payer OTHER, MEDICARE, SELFPAY ==
[2023-12-14 11:32] LABS: Hematocrit 37.6 % (37.0-47.0); Hemoglobin 12.8 g/dL (12.0-16.0); Mean Corpuscular Hgb 29.2 pg (27.0-31.0); Mean Corpuscular Volume 85.8 fL (81.0-99.0); Platelet Count 244 10^3/uL (130-400); Red Blood Cell Count 4.38 10^6/uL (4.20-5.40); Red Cell Dist. Width 14.8 % (11.5-14.5); White Blood Cell Count 6.7 10^3/uL (4.8-10.8)
[2023-12-14 12:15] LABS: Glycohemoglobin (HgbA1c) 6.3 % (4.0-5.6)
[2023-12-14 12:51] LABS: Blood Urea Nitrogen 15 mg/dl (7-17); Calcium 9.1 mg/dl (8.4-10.2); Carbon Dioxide 25 mmol/L (22-30); Chloride 103 mmol/L (98-107); Glucose 106 mg/dl (70-99); Potassium 3.8 mmol/L (3.5-5.1); Sodium 134 mmol/L (135-145); eGFR > 60.00
== END ==
LOC: OLABWHC 10:45
PROVIDERS: ATTENDING PHYSICIAN Internal Medicine
DX: N39.0 Urinary tract infection, site not specified (principal); E11.9 Type 2 diabetes mellitus without complications; Z79.82 Long term (current) use of aspirin
CPT/HCPCS: 36415; 80048; 83036; 85027

== ENCOUNTER → 2023-12-19 10:31 | Outpatient (REF) | payer OTHER, MEDICARE, SELFPAY ==
[2023-12-19 13:30] LABS: ALT (SGPT) 19 U/L (0-35); AST (SGOT) 21 U/L (14-36); Albumin 3.7 g/dl (3.5-5.0); Alkaline Phosphatase 55 U/L (38-126); Blood Urea Nitrogen 11 mg/dl (7-17); Calcium 9.2 mg/dl (8.4-10.2); Carbon Dioxide 27 mmol/L (22-30); Chloride 104 mmol/L (98-107); Glucose 102 mg/dl (70-99); Sodium 136 mmol/L (135-145); Total Bilirubin 0.4 mg/dl (0.2-1.3); Total Protein 6.4 g/dl (6.3-8.2); eGFR > 60.00
[2023-12-19 13:34] LABS: % Basophils 0.6 % (0-2); % Eosinophils 1.5 % (0-6); % Immature Granulocytes 0.1 % (0-0.5); % Lymphocytes 39.6 % (20.5-51.1); % Monocytes 5.5 % (1.7-9.3); % Neutrophils 52.7 % (42.2-75.2); Absolute Eosinophils 0.1 10^3/uL (0-0.7); Absolute Lymphocytes 2.7 10^3/uL (1.2-3.4); Absolute Monocytes 0.4 10^3/uL (0.1-0.6); Absolute Neutrophils 3.5 10^3/uL (1.4-6.5); Hematocrit 37.1 % (37.0-47.0); Hemoglobin 12.3 g/dL (12.0-16.0); Mean Corp Hgb Conc. 33.2 g/dL (33.0-37.0); Mean Corpuscular Hgb 28.4 pg (27.0-31.0); Mean Corpuscular Volume 85.7 fL (81.0-99.0); Mean Platelet Volume 10.3 fL (7.4-10.4); Nucleated Red Blood Cells % 0 %; Platelet Count 260 10^3/uL (130-400); Red Blood Cell Count 4.33 10^6/uL (4.20-5.40); Red Cell Dist. Width 15.2 % (11.5-14.5); White Blood Cell Count 6.7 10^3/uL (4.8-10.8)
[2023-12-19 13:55] LABS: Glycohemoglobin (HgbA1c) 6.2 % (4.0-5.6)
== END ==
LOC: OLABWHC 10:31
PROVIDERS: ATTENDING PHYSICIAN Internal Medicine
DX: E11.9 Type 2 diabetes mellitus without complications (principal); Z79.82 Long term (current) use of aspirin; I10 Essential (primary) hypertension
CPT/HCPCS: 36415; 80053; 83036; 85025

== ENCOUNTER → 2024-03-28 16:34 | Outpatient (REF) | payer OTHER, MEDICARE, SELFPAY ==
[2024-03-28 20:17] LABS: Urine Albumin Trace (Neg - Trace); Urine Bilirubin Negative (Negative); Urine Character Clear (Clear); Urine Color Yellow; Urine Glucose Negative (Negative); Urine Ketone Negative (Negative); Urine Leukocyte 1+ (Negative); Urine Nitrite Positive (Negative); Urine Occult Blood 1+ (Negative); Urine Urobilinogen Negative (Neg - 1+)
[2024-03-28 20:27] LABS: Urine Bacteria Moderate (Negative); Urine Mucus Few; Urine Red Blood Cell 0-2 /HPF (0-2); Urine Squamous Cell 16-20 /LPF (Few); Urine White Cell 30-40 /HPF (0-5)
== END ==
LOC: OLABWHC 16:34
PROVIDERS: ATTENDING PHYSICIAN Internal Medicine
DX: N39.0 Urinary tract infection, site not specified (principal)
CPT/HCPCS: 81003; 81015; 87077; 87086; 87186

== ENCOUNTER → 2024-08-25 10:07 | Outpatient (REF) | payer MEDICARE, OTHER, SELFPAY ==
[2024-08-25 11:15] LABS: Blood Urea Nitrogen 12 mg/dl (7-17); Calcium 9.1 mg/dl (8.4-10.2); Carbon Dioxide 24 mmol/L (22-30); Chloride 102 mmol/L (98-107); Glucose 107 mg/dl (70-99); Sodium 137 mmol/L (135-145); eGFR > 60.00
[2024-08-25 12:03] LABS: Glycohemoglobin (HgbA1c) 6.6 % (4.0-5.6)
== END ==
LOC: OLABWPC 10:07
DX: E11.9 Type 2 diabetes mellitus without complications (principal)
CPT/HCPCS: 36415; 80048; 83036

== ENCOUNTER → 2024-12-01 10:16 | Outpatient (REF) | payer OTHER, MEDICARE, SELFPAY ==
[2024-12-01 10:49] LABS: Hematocrit 39.2 % (37.0-47.0); Hemoglobin 12.8 g/dL (12.0-16.0); Mean Corp Hgb Conc. 32.7 g/dL (33.0-37.0); Mean Corpuscular Volume 85.8 fL (81.0-99.0); Mean Platelet Volume 9.5 fL (7.4-10.4); Platelet Count 219 10^3/uL (130-400); Red Blood Cell Count 4.57 10^6/uL (4.20-5.40); Red Cell Dist. Width 14.6 % (11.5-14.5); White Blood Cell Count 6.6 10^3/uL (4.8-10.8)
[2024-12-01 11:00] LABS: ALT (SGPT) 19 U/L (0-35); AST (SGOT) 20 U/L (14-36); Albumin 4.1 g/dl (3.5-5.0); Alkaline Phosphatase 78 U/L (38-126); Blood Urea Nitrogen 13 mg/dl (7-17); Calcium 9.4 mg/dl (8.4-10.2); Carbon Dioxide 26 mmol/L (22-30); Chloride 103 mmol/L (98-107); Glucose 123 mg/dl (70-99); Magnesium 1.9 mg/dl (1.6-2.3); Potassium 3.8 mmol/L (3.5-5.1); Sodium 141 mmol/L (135-145); Total Bilirubin 0.8 mg/dl (0.2-1.3); Total Protein 6.7 g/dl (6.3-8.2); eGFR > 60.00
== END ==
LOC: OLABWHC 10:16
PROVIDERS: ATTENDING PHYSICIAN Family Medicine
DX: G45.9 Transient cerebral ischemic attack, unspecified (principal); I63.9 Cerebral infarction, unspecified; Z87.440 Personal history of urinary (tract) infections; M62.81 Muscle weakness (generalized); Z79.82 Long term (current) use of aspirin; E11.9 Type 2 diabetes mellitus without complications
CPT/HCPCS: 36415; 80053; 83735; 85027

== ENCOUNTER → 2025-04-28 11:21 | Outpatient (REF) | payer MEDICARE, OTHER, SELFPAY ==
[2025-04-28 12:41] LABS: Hematocrit 36.9 % (37.0-47.0); Hemoglobin 12.0 g/dL (12.0-16.0); Mean Corp Hgb Conc. 32.5 g/dL (33.0-37.0); Mean Corpuscular Volume 87.0 fL (81.0-99.0); Platelet Count 275 10^3/uL (130-400); Red Cell Dist. Width 14.5 % (11.5-14.5)
[2025-04-28 12:52] LABS: ALT (SGPT) 16 U/L (0-35); AST (SGOT) 18 U/L (14-36); Albumin 3.3 g/dl (3.5-5.0); Alkaline Phosphatase 54 U/L (38-126); Blood Urea Nitrogen 8 mg/dl (7-17); Calcium 8.7 mg/dl (8.4-10.2); Carbon Dioxide 28 mmol/L (22-30); Chloride 104 mmol/L (98-107); Glucose 122 mg/dl (70-99); Potassium 4.0 mmol/L (3.5-5.1); Sodium 138 mmol/L (135-145); Total Protein 6.0 g/dl (6.3-8.2); eGFR > 60.00
== END ==
LOC: OLABWHC 11:21
PROVIDERS: ATTENDING PHYSICIAN Family Medicine
DX: E11.9 Type 2 diabetes mellitus without complications (principal); I63.9 Cerebral infarction, unspecified; Z87.440 Personal history of urinary (tract) infections; E87.8 Other disorders of electrolyte and fluid balance, not elsewhere classified; E78.5 Hyperlipidemia, unspecified; Z79.82 Long term (current) use of aspirin
CPT/HCPCS: 36415; 80053; 85027

== ENCOUNTER → 2025-06-17 10:43 | Outpatient (REF) | payer MEDICARE, OTHER, SELFPAY ==
[2025-06-18 13:13] LABS: Urine Character Clear (Clear)
[2025-06-18 14:19] LABS: Urine Red Blood Cell 0-2 /HPF (0-2); Urine White Cell >100 /HPF (0-5)
== END ==
LOC: OLABWHC 10:43
PROVIDERS: ATTENDING PHYSICIAN Family Medicine
DX: Z87.440 Personal history of urinary (tract) infections (principal); N31.9 Neuromuscular dysfunction of bladder, unspecified; R33.8 Other retention of urine
CPT/HCPCS: 81003; 81015; 87086